=== PATIENT | female | born 1940 | race Caucasian/White ===

== ENCOUNTER → 2016-05-18 | Outpatient (CLI) | payer MEDICARE, BC | LOC: MC.RAD 09:50 | DX: Z12.31 Encounter for screening mammogram for malignant neoplasm of breast (principal); Z80.3 Family history of malignant neoplasm of breast ==

== ENCOUNTER → 2017-05-19 | Outpatient (CLI) | payer MEDICARE, BC | LOC: MC.RAD 07:47 | DX: Z12.31 Encounter for screening mammogram for malignant neoplasm of breast (principal) ==

== ENCOUNTER → 2018-05-27 | Outpatient (CLI) | payer MEDICARE, BC | LOC: MC.RAD 07:47 | DX: Z12.31 Encounter for screening mammogram for malignant neoplasm of breast (principal); Z80.3 Family history of malignant neoplasm of breast ==

== ENCOUNTER → 2019-06-12 | Outpatient (CLI) | payer MEDICARE, BC | LOC: MC.RAD 13:45 | DX: Z12.31 Encounter for screening mammogram for malignant neoplasm of breast (principal) ==

== ENCOUNTER → 2020-06-13 | Outpatient (CLI) | payer MEDICARE, BC | LOC: MC.RAD 09:04 | DX: Z12.31 Encounter for screening mammogram for malignant neoplasm of breast (principal) ==

== ENCOUNTER → 2021-06-16 | Outpatient (CLI) | payer MEDICARE, BC | LOC: MC.RAD 07:54 | DX: Z12.31 Encounter for screening mammogram for malignant neoplasm of breast (principal) ==

== ENCOUNTER → 2022-09-01 | Day surgery (SDC) | payer MEDICARE, BC ==
[~2022-09-01] VITALS: Ht 162.6 cm; Wt 59.7 kg
[~2022-09-01] MED LIST: CARDIZEM CD 12120 MG PO; CARDIZEM120 MG PO; D3-5050000 IU PO; ELIQUIS 2.5 PO; LEVAQUIN 2250 MG/TAB; LEVAQUIN 5500 MG/TA1 PO; MULTI VITAMINS1 TAB PO; OSCAL 500 TAB500 MG PO; SYNTHROID0.075 MG/T PO; ZOVIRAX400 MG PO
[2022-09-01 08:47] VITALS: BP 131/62; PULSE 89; TEMP 97.6
[2022-09-01 09:20] VITALS: BP 105/58; PULSE 74; TEMP 96.9
[2022-09-01 09:35] VITALS: BP 122/53; PULSE 75
[2022-09-01 09:50] VITALS: BP 107/66; PULSE 71; TEMP 97.3
--- NOTE | 2022-09-01 10:15 | NUR ---
0920 PT RETURNED TO BAY 5 FROM OR, ALERT AND ANSWERING QUESTIONS APPROPRIATELY. RECEIVED REPORT FROM MARIELY SEGUNDO RN PT GIVEN WATER AND A MUFFIN. TOLERATED WELL. 1000 PT AMBULATORY TO RESTROOM WITH STEADY GAIT. PT TO [facility] VIA WHEEL [facility]AIR FOR RIDE WITH HER IN [facility].
== END ==
LOC: SDCO 06:17
DX: D46.9 Myelodysplastic syndrome, unspecified (principal)
CPT/HCPCS: C1788; J0690; J1644; J2704; J7120

== ENCOUNTER 2023-03-04 09:59 | Outpatient (RCR) | payer MEDICARE, BC ==
[~2023-03-04 09:59] MED LIST changes: -D3-5050000 IU PO; +DIFLUCAN200 MG PO; +VENCLEXTA100 MG PO; +VITAMIN D31000 I1 PO
[2023-03-04 11:24] VITALS: BP 135/68; PULSE 53; TEMP 97.9
[2023-03-04 11:41] VITALS: BP 135/65; PULSE 77; TEMP 97.8
[2023-03-04 11:56] VITALS: BP 129/73; PULSE 85; TEMP 98.2
[2023-03-04 12:26] VITALS: BP 129/74; PULSE 85; TEMP 98.2
[2023-03-04 13:14] VITALS: BP 133/63; PULSE 87; TEMP 98.4
== END 2023-03-04 13:38 ==
LOC: EUO 09:59
DX: D46.22 Refractory anemia with excess of blasts 2 (principal)
CPT/HCPCS: J1644; J7050; P9035

== ENCOUNTER 2023-03-09 14:37 | Outpatient (RCR) | payer MEDICARE, BC ==
[~2023-03-09] VITALS: Ht 162.6 cm; Wt 55.2 kg
[2023-03-09] VITALS (10 sets, daily range): BP systolic 116–138; BP diastolic 49–78; PULSE 77–93; TEMP 98.1–98.9
== END 2023-03-09 15:17 | disposition home or self-care (01) ==
LOC: EUO 14:37
DX: D46.22 Refractory anemia with excess of blasts 2 (principal)
CPT/HCPCS: J1644; J7050; P9035

== ENCOUNTER 2023-05-07 08:00 | Outpatient (RCR) | payer MEDICARE, BC ==
[~2023-05-07] VITALS: Ht 162.6 cm; Wt 54.9 kg
[2023-05-07] VITALS (10 sets, daily range): BP systolic 117–130; BP diastolic 65–90; PULSE 76–91; TEMP 97.8–98.3
== END 2023-05-07 12:20 | disposition home or self-care (01) ==
LOC: EUO 08:00
DX: D46.22 Refractory anemia with excess of blasts 2 (principal)
CPT/HCPCS: J1644; J7050; P9040

== ENCOUNTER 2023-05-13 12:10 | Outpatient (RCR) | payer MEDICARE, BC ==
[2023-05-13 12:35] VITALS: BP 137/77; PULSE 85; TEMP 97.6
[2023-05-13 12:52] VITALS: BP 132/72; PULSE 86; TEMP 97.8
[2023-05-13 13:07] VITALS: BP 131/67; PULSE 76; TEMP 97.7
[2023-05-13 13:37] VITALS: BP 128/74; PULSE 77; TEMP 97.7
[2023-05-13 14:03] VITALS: BP 115/68; PULSE 78; TEMP 97.9
== END 2023-05-13 14:08 ==
LOC: EUO 12:10
DX: D46.22 Refractory anemia with excess of blasts 2 (principal)
CPT/HCPCS: J1644; J7050; P9035

== ENCOUNTER 2023-07-22 12:50 | Outpatient (RCR) | payer MEDICARE, BC ==
[2023-07-22] MEDS ORDERED: NS 250 ML IV SCH (13:15)
[2023-07-22] MEDS ORDERED: diphenhydrAMINE 25 MG CAP PO SCH (13:15)
[2023-07-22] MEDS ORDERED: Acetaminophen 325 MG TAB PO SCH (13:15)
[2023-07-22 14:20] VITALS: BP 130/73; PULSE 87; TEMP 98
[2023-07-22 14:38] VITALS: BP 120/64; PULSE 85; TEMP 98.1
[2023-07-22 14:53] VITALS: BP 130/68; PULSE 86; TEMP 98
[2023-07-22 15:23] VITALS: BP 130/75; PULSE 84; TEMP 98.1
[2023-07-22 15:40] VITALS: BP 127/68; PULSE 84; TEMP 98.1
== END 2023-07-22 15:51 ==
LOC: EUO 12:50
DX: D46.22 Refractory anemia with excess of blasts 2 (principal)
CPT/HCPCS: J1644; J7050; P9035

== ENCOUNTER 2023-08-19 10:26 | Outpatient (RCR) | payer MEDICARE, BC ==
[~2023-08-19] VITALS: Ht 162.6 cm; Wt 52.4 kg
[2023-08-19] VITALS (10 sets, daily range): BP systolic 111–130; BP diastolic 61–85; PULSE 73–87; TEMP 97–98.8
[2023-08-19] MEDS ORDERED: NS 250 ML IV SCH (10:45)
[2023-08-19] MEDS ORDERED: diphenhydrAMINE 25 MG CAP PO SCH (10:45)
[2023-08-19] MEDS ORDERED: Acetaminophen 325 MG TAB PO SCH (10:45)
== END 2023-08-19 17:07 ==
LOC: EUO 10:26
DX: D46.22 Refractory anemia with excess of blasts 2 (principal); D53.8 Other specified nutritional anemias
CPT/HCPCS: J1644; J7050; P9040

== ENCOUNTER 2023-10-28 11:59 | Emergency (ER) | payer MEDICARE, BC ==
[~2023-10-28] VITALS: Ht 162.6 cm; Wt 50.9 kg
[~2023-10-28 11:59] MED LIST changes: +BONIVA150 MG PO; +FENTANYL 25 MCG TD; +FORTICAL200 IU/ACT NS; +NORCO 325 MG-51 TAB PO; +PERCOCET 325 MG1 TA2 PO
[2023-10-28 12:04] VITALS: TEMP 98.2
[2023-10-28 14:20] VITALS: BP 123/74; PULSE 103
[2023-11-05] MEDS ORDERED: OXYCONTIN 20MG20 MG PO (12:31)
== END 2023-10-28 14:20 | disposition home or self-care (01) ==
LOC: COL.ER 11:59
DX: S00.531A Contusion of lip, initial encounter (principal); S00.432A Contusion of left ear, initial encounter; S00.83XA Contusion of other part of head, initial encounter; D46.9 Myelodysplastic syndrome, unspecified; Z79.899 Other long term (current) drug therapy; W01.198A Fall on same level from slipping, tripping and stumbling with subsequent striking against other object, initial encounter; Y92.091 Bathroom in other non-institutional residence as the place of occurrence of the external cause